=== PATIENT | male | born 1935 | race Caucasian/White ===

== ENCOUNTER 2016-06-07 10:58 | Emergency (ER) | payer MEDICARE ==
[~2016-06-07] VITALS: Ht 175.3 cm; Wt 90.7 kg
[~2016-06-07 10:58] MED LIST: ALBU2TAB4 PO; DOXY75CA4 PO; FEXO-47 PO; GLIP-115 PO; LOSA100T27 PO; METF-312 PO; NAS17NSL; OMEP20CA5 PO; OSEL75CA11 PO; OXYB5TAB62 PO; PRED-188 PO; TAMS0.4C36 PO
[2016-06-07] MEDS ORDERED: EPINEPHrine HCL 1 MG/10 ML SYRG IV ONE (20:00)
[2016-06-07] MEDS ORDERED: SODIUM BICARBONATE 8.4% INJ 50ML SYRINGE IV ONE (20:00)
== END 2016-06-07 17:23 | disposition expired ==
LOC: EDBD 11:01 → EDUNIT# 11:01 → ER 11:01
DX: I46.9 Cardiac arrest, cause unspecified (principal); I10 Essential (primary) hypertension; J44.9 Chronic obstructive pulmonary disease, unspecified; R41.82 Altered mental status, unspecified
CPT/HCPCS: 31500; 92950; 99285; J0171